=== PATIENT | male | born 1970 | race Caucasian/White ===

== ENCOUNTER 2017-07-08 20:07 | Emergency (ER) | payer BC ==
[~2017-07-08] VITALS: Ht 165.1 cm; Wt 99.5 kg
[~2017-07-08 20:07] MED LIST: BENA20TA65 PO; CIPR500T4 PO; METR500T PO
[2017-07-08 20:11] VITALS: Ht 165.1 cm; Wt 99.5 kg
[2017-07-08] MEDS ORDERED: ONDANSETRON (ODT) 4 MG TAB ODT STA (23:11)
[2017-07-08] MEDS ORDERED: ACET/BUTAL/CAFF/CODEINE CAP PO ONE (23:30)
--- NOTE | 2017-07-08 23:31 | ERD ---
ER Documentation Chief Complaint Chief Complaint headache, nausea HPI 46-year-old male presents to emergency department for complaints of headache bilateral periorbital pain nausea for 2 weeks. Patient is complaining of headache throbbing pain, 6/10 scale, complaining of nausea with it and light sensitivity. Patient denies any head injury recently. Patient had a history of a head injury 9 years ago. Patient denies any vomiting. Patient denies any fever or chills. Patient was in ROS All systems reviewed and are negative except as per history of present illness. Medications Home Meds Active Scripts Ciprofloxacin Hcl* (Ciprofloxacin Hcl*) 500 Mg Tablet, 500 MG PO BID, #14 TAB Prov:HENRY LONDON MD 09/16/16 Metronidazole* (Flagyl*) 500 Mg Tablet, 500 MG PO Q8 for 7 Days, TAB Prov:HENRY LONDON MD 09/16/16 Benazepril Hcl* (Lotensin*) 20 Mg Tablet, 20 MG PO DAILY, #30 TAB Prov:JANENE COBB MD 09/29/15 Allergies Allergies: Coded Allergies: No Known Allergy (Unverified , 09/29/15) PMhx/Soc History of Surgery: No Anesthesia Reaction: No Hx Neurological Disorder: No Hx Respiratory Disorders: No Hx Cardiac Disorders: Yes (HTN) Hx Psychiatric Problems: No Hx Miscellaneous Medical Probl: No Hx Alcohol Use: Yes Hx Substance Use: No Hx Tobacco Use: No Smoking Status: Never smoker FmHx Family History: No coronary disease, No diabetes, No other Physical Exam Vitals Vital Signs Date Time Temp Pulse Resp B/P Pulse Ox O2 Delivery O2 Flow Rate FiO2 07/08/17 20:11 98.9 79 20 142/95 96 Physical Exam GENERAL: The patient is well developed and appropriate for usual state of health, in no apparent distress. CHEST: Clear to auscultation bilaterally. There are no rales, wheezes or rhonchi. HEART: Regular rate and rhythm. No murmurs, clicks, rubs or gallops. No S3 or S4. ABDOMEN: Soft, nontender and nondistended. Good bowel sounds. No rebound or guarding. No gross peritonitis. No gross organomegaly or masses. No Correa sign or McBurney point tenderness. BACK: No midline or flank tenderness. EXTREMITIES: Equal pulses bilaterally. There is no peripheral clubbing, cyanosis or edema. No focal swelling or erythema. Full range of motion. Grossly neurovascularly intact. NEURO: Alert and oriented. Cranial nerves 2-12 intact. Motor strength in all 4 extremities with 5/5 strength. Sensation grossly intact. Normal speech and gait. SKIN: There is no apparent rash or petechia. The skin is warm and dry. HEMATOLOGIC AND LYMPHATIC: There is no evidence of excessive bruising or lymphedema. No gross cervical, axillary, or inguinal lymphadenopathy. Results 24 hrs Current Medications Medications (Trade) Dose Ordered Sig/Chapin Route PRN Reason Start Time Stop Time Status Last Admin Dose Admin Acetam/Butalbital/ Caffeine/Codeine (Fioricet/ Codeine) 1 cap ONCE ONCE PO 07/08/17 23:30 07/08/17 23:31 DC 07/08/17 23:25 Ondansetron HCl (Zofran Odt) 4 mg ONCE STAT ODT 07/08/17 23:11 07/08/17 23:13 DC 07/08/17 23:24 Patient was given medication for pain here in emergency department, after treatment, patient verbalized feeling much better. Patient's pain is improved. Patient was given Zofran here in the emergency department. After treatment, patient was able to tolerate po fluids here in the emergency department without any vomiting. There is no signs and symptoms of dehydration. PROCEDURE: CT Brain without contrast. CLINICAL INDICATION: Headache. TECHNIQUE: A CT of the brain without contrast was performed utilizing axial sections from the skull base through the vertex. The patient was scanned without intravenous contrast enhancement. Sagittal and coronal reformatted images were obtained using the data from the axial images. Total exam DLP is 810.25 mGy-cm. CTDIvol is 45.00 mGy. One or more of the following dose reduction techniques were used: Automated exposure control, adjustment of the mA and/or kV according to patient size, use of iterative reconstruction technique. COMPARISON: None available FINDINGS: There is normal frazier-white matter differentiation. The ventricles and cisterns are normal. There is no intracranial hemorrhage or space-occupying lesion. There is no skull fracture or lytic lesion. Polyps or cysts are present bilaterally in the maxillary sinuses inferiorly. IMPRESSION: 1. Polyps or cysts bilaterally in the maxillary sinuses inferiorly. 2. Otherwise normal noncontrast CT scan of the brain. 3. No intracranial hemorrhage. RPTAT: QQ .Janene Malcolm MD, MD Date Time Electronically viewed and signed by .Janene Malcolm MD, MD on 07/09/2017 00:18 .R/ CC: PAULINO JC NP Procedures/MDM Medical Decision Making: Patient symptoms are consistent with migraine headache , possible tension headache. There is low suspicion for neurological emergencies at this time since patients neurologic exam is normal. Patient did not have any altered level consciousness, vomiting, changes in balance or memory and did not have any head injury. Patients CT scan of the head does not show any neurological emergencies at this time. Rx: Fioricet with codeine, Zofran Dispostion: Home. Stable Disclaimer: Inadvertent spelling and grammatical errors are likely due to EHR/ dictation software use and do not reflect on the overall quality of patient care. Also, please note that the electronic time recorded on this note does not necessarily reflect the actual time of the patient encounter. Departure Diagnosis: Primary Impression: Headache Headache type: unspecified Headache chronicity pattern: acute headache Intractability: not intractable Qualified Code: R51 - Acute nonintractable headache, unspecified headache type Condition: Stable Patient Instructions: Self-Care for Headaches PAULINO JC NP Jul 08, 2017 23:31
--- NOTE | 2017-07-09 00:18 | RADRPT ---
PROCEDURE: CT Brain without contrast. CLINICAL INDICATION: Headache. TECHNIQUE: A CT of the brain without contrast was performed utilizing axial sections from the skul l base through the vertex. The patient was scanned without intravenous contrast enhancement. Sagitta l and coronal reformatted images were obtained using the data from the axial images. Total exam DLP is 810.25 mGy-cm. CTDIvol is 45.00 mGy. One or more of the following dose reduction techniques we re used: Automated exposure control, adjustment of the mA and/or kV according to patient size, use o f iterative reconstruction technique. COMPARISON: None available FINDINGS: There is normal frazier-white matter differentiation. The ventricles and cisterns are normal. There is no intracranial hemorrhage or space-occupying lesion. There is no skull fracture or lytic lesion. Polyps or cysts are present bilaterally in the maxillary sinuses inferiorly. IMPRESSION: 1. Polyps or cysts bilaterally in the maxillary sinuses inferiorly. 2. Otherwise normal noncontrast CT scan of the brain. 3. No intracranial hemorrhage. RPTAT: QQ .Colin Malcolm MD, MD Date Time Electronically viewed and signed by .Colin Malcolm MD, MD on 07/09/2017 00:18 .R/
[2017-07-09] MEDS ORDERED: ONDA4TAB14 PO (01:11)
[2017-07-09] MEDS ORDERED: ABCC1C PO (01:11)
== END 2017-07-09 01:23 | disposition home or self-care (01) ==
LOC: FTE 20:07
DX: R51 Headache (principal); I10 Essential (primary) hypertension; R11.0 Nausea
CPT/HCPCS: 70450; Z7502; Z7610

== ENCOUNTER 2018-02-19 09:28 | Emergency (ER) | END 2018-02-19 11:57 | disposition home or self-care (01) ==

== ENCOUNTER 2018-10-15 20:09 | Emergency (ER) | payer BC ==
[~2018-10-15] VITALS: Ht 170.2 cm; Wt 106.8 kg
[~2018-10-15 20:09] MED LIST changes: +ABCC1C PO; +BUTA1CAP38 PO; +HYDR25TA6 PO; +ONDA4TAB14 PO
[2018-10-15 20:35] VITALS: Ht 170.2 cm; Wt 106.8 kg
[2018-10-15] MEDS ORDERED: KETOROLAC 30 MG INJ IV STA (22:28)
[2018-10-16] MEDS ORDERED: IBUP-1542 PO (00:34)
[2018-10-16 00:39] VITALS: BP 140/90; PULSE 59; RESP 18
--- NOTE | 2018-10-16 03:37 | ERD ---
ER Documentation Chief Complaint Chief Complaint C/O LT SIDED RIB PAIN X1 HR, DENIES INJURY HPI Patient is a 40-year-old male with a past medical history of hypertension who presents to the ER for concerns of left lower rib pain which started 1 hour prior to arrival. Patient states he was getting into his car when he felt his ribs "crunch in". Patient denies any upper left-sided chest pain, shortness of breath, nausea, vomiting, diaphoresis, left upper extremity pain or LOC. Patient states the pain is present when he pushes on the affected area. At rest pain is minimal. Patient denies any radiation of the pain. Patient denies any hemoptysis. Patient denies any fevers or chills. No recent travel. No leg swelling. No history of recent surgeries, no history of DVT or PE. ROS All systems reviewed and are negative except as per history of present illness. Medications Home Meds Active Scripts Ibuprofen* (Motrin*) 600 Mg Tab, 600 MG PO Q6, #30 TAB Prov:TYREE SILVA PA-C 10/16/18 Buyddpypux-Vrypaxferyaee-Ecfkveen* (Fioricet*) 50-300-40 Mg Capsule, 1 CAP PO Q4H PRN for HEADACHE, #20 CAP Prov:JANENE COBB MD 02/19/18 Hydrochlorothiazide* (Hydrochlorothiazide*) 25 Mg Tab, 25 MG PO DAILY, #30 TAB Prov:JANENE COBB MD 02/19/18 Ondansetron (Ondansetron Odt) 4 Mg Tab.rapdis, 4 MG PO Q8 PRN for NAUSEA AND/OR VOMITING, #30 TAB Prov:PAULINO JC NP 07/09/17 Xoayfxvnkbrhc-Ukjtedtgds-Azyxnkdt-Codeine* (Fioricet w/Codeine*) [id number] Cap, 1 CAP PO Q4H PRN for PAIN LEVEL 1-5, #20 CAP Prov:PAULINO JC NP 07/09/17 Ciprofloxacin Hcl* (Ciprofloxacin Hcl*) 500 Mg Tablet, 500 MG PO BID, #14 TAB Prov:HENRY LONDON MD 09/16/16 Metronidazole* (Flagyl*) 500 Mg Tablet, 500 MG PO Q8 for 7 Days, TAB Prov:HENRY LONDON MD 09/16/16 Benazepril Hcl* (Lotensin*) 20 Mg Tablet, 20 MG PO DAILY, #30 TAB Prov:JANENE COBB MD 09/29/15 Allergies Allergies: Coded Allergies: No Known Allergy (Unverified , 09/29/15) PMhx/Soc History of Surgery: No Anesthesia Reaction: No Hx Neurological Disorder: No Hx Respiratory Disorders: No Hx Cardiac Disorders: Yes (HTN) Hx Psychiatric Problems: No Hx Miscellaneous Medical Probl: No Hx Alcohol Use: Yes Hx Substance Use: No Hx Tobacco Use: No Smoking Status: Never smoker FmHx Family History: No diabetes, No coronary disease Physical Exam Vitals Vital Signs Date Temp Pulse Resp B/P (MAP) Pulse Ox O2 O2 Flow FiO2 Time Delivery Rate 10/16/18 98.4 59 18 140/90 98 Room Air 00:39 (107) 10/15/18 98.6 85 20 141/84 97 20:35 (103) Physical Exam GENERAL: Well-developed, well-nourished male. Appears in no acute distress. Speaking in full sentences HEAD: Normocephalic, atraumatic. EYES: Pupils are equally reactive bilaterally. EOMs grossly intact. No conjunctival erythema. ENT: Moist mucous membranes. No uvula deviation. No kissing tonsils. NECK: Supple. No meningismus. Normal range of motion of the neck. LUNG: Clear to auscultation bilaterally. No rhonchi, wheezing, rales or coarse breath sounds. CHEST WALL: Pinpoint tenderness pain is reproducible. To palpation to the left lower rib cage. HEART: Regular rate and rhythm. No murmurs, rubs or gallops. Equal peripheral pulses in bilateral upper extremities. ABDOMEN: No scars, ecchymosis or rashes noted. No pulsatile masses noted bilaterally. Soft, nontender, and nondistended. Positive bowel sounds in all four quadrants. No rebound tenderness, no guarding. (-) McBurney's point tenderness. No CVA tenderness EXTREMITIES: Equal pulses bilaterally. No peripheral clubbing, cyanosis or edema. No unilateral leg swelling. NEUROLOGIC: Alert and oriented. Moving all four extremities without any difficulty. Normal speech. Steady gait. SKIN: Normal color. Warm and dry. No rashes or lesions. Result Diagram: 10/15/18223210/15/182232 Results 24 hrs Laboratory Tests Test 10/15/18 22:33 White Blood Count 8.0 10^3/ul Red Blood Count 4.53 10^6/ul Hemoglobin 14.6 g/dl Hematocrit 42.1 % Mean Corpuscular Volume 92.9 fl Mean Corpuscular Hemoglobin 32.2 pg Mean Corpuscular Hemoglobin Concent 34.7 g/dl Red Cell Distribution Width 12.0 % Platelet Count 174 10^3/UL Mean Platelet Volume 11.2 fl Immature Granulocytes % 0.500 % Neutrophils % 52.0 % Lymphocytes % 39.3 % Monocytes % 6.1 % Eosinophils % 1.5 % Basophils % 0.6 % Nucleated Red Blood Cells % 0.0 /100WBC Immature Granulocytes # 0.040 10^3/ul Neutrophils # 4.2 10^3/ul Lymphocytes # 3.2 10^3/ul Monocytes # 0.5 10^3/ul Eosinophils # 0.1 10^3/ul Basophils # 0.1 10^3/ul Nucleated Red Blood Cells # 0.0 10^3/ul Sodium Level 144 mmol/L Potassium Level 3.9 mmol/L Chloride Level 102 mmol/L Carbon Dioxide Level 28 mmol/L Anion Gap 14 Blood Urea Nitrogen 18 mg/dl Creatinine 0.96 mg/dl Est Glomerular Filtrat Rate mL/min > 60 mL/min Glucose Level 103 mg/dl Calcium Level 9.9 mg/dl Troponin I < 0.012 ng/ml Current Medications Medications Dose Sig/Chapin Start Time Status Last (Trade) Ordered Route PRN Stop Time Admin Dose Reason Admin Ketorolac 30 mg ONCE STAT 10/15/18 DC 10/15/18 Tromethamine IV 22:28 22:57 (Toradol) 10/15/18 22:31 Procedures/MDM ED COURSE: The patient was stable throughout ED course. I kept the patient and/or family informed of laboratory and diagnostic imaging results throughout the ED course. EKG: Read by Dr. Sotomayor, attending physician. EKG shows normal sinus rhythm at a rate of 70 bpm No arrhythmias, acute ST elevations or T wave changes were noted. DIAGNOSTIC IMAGING: Read by radiologist. DIAGNOSTIC IMAGING REPORT Patient: WANDY CHEN : 1970 Age: 48 Sex: M MR #: [id number] DOS: 10/16/18 0002 Ordering MD: TYREE SILVA PA-C Location: [facility] Room/Bed: PROCEDURE: XR Chest. CLINICAL INDICATION: Chest pain TECHNIQUE: Single frontal view of the chest was obtained COMPARISON: CHEST 10/15/2018; [facility] CHEST 03/16/2014 FINDINGS: Hypoinflation of the lungs and bibasilar atelectasis. Minimal elevation of the right hemidiaphragm with right lower lung volume loss. Hypoinflation lungs and portable AP technique and lordotic position of the patient accentuates the cardiomediastinal silhouette. The heart does not appear to be grossly enlarged. The patient is noted to the right. There is no pleural effusion or pneumothorax. IMPRESSION: Hypoinflation of the lungs and bibasilar atelectasis. Please see above. RPTAT: HJES .Everton Kirk MD, Date Time Electronically viewed and signed by .Evertno Kirk MD, MD on 10/16/2018 00:41 .S/ CC: TYREE SILVA PA-C [id number] Patient: WANDY CHEN : 1970 Age: 48 Sex: M MR #: [id number] DOS: 10/15/18 2228 Ordering MD: TYREE SILVA PA-C Location: [facility] Room/Bed: PROCEDURE: Left rib radiographs CLINICAL INDICATION: Left rib pain TECHNIQUE: Images of the left ribs were obtained. The images were reviewed on a PACS workstation. 3 images COMPARISON: None. FINDINGS: Rib detail images show no visible left rib fracture. IMPRESSION: 1. No visible left rib fracture. RPTAT:AAJJ Physician Oly Date Time Electronically viewed and signed by Physician Oly on 10/15/2018 23:50 GW/ CC: TYREE SILVA PA-C [id number] MEDICATIONS GIVEN: Toradol IV Patient tolerated medication well with no adverse reactions. Patient reported improvement in pain. MEDICAL DECISION MAKING: This is a 40-year-old male with a past medical history of hypertension presents the ER for concerns of left-sided rib cage pain which started 1 hour prior to arrival. Patient states pain started after he was getting into his car and felt a "crunch".. Patient denied any leg swelling, recent surgeries, travel. Vital signs were reviewed. Patient was afebrile. Patient was not hypoxic. Cardiac exam was normal. Lung exam was normal. Patient did have reproducible pain on exam. EKG showed normal sinus rhythm. No ST elevations. Reviewed by ED attending. Left-sided rib series is unremarkable. Left-sided chest x-ray was unremarkable. See formal reports above. CBC showed no elevated WBC count or evidence of severe anemia. BMP showed no severe electrolyte abnormalities, acidosis, alkalosis or renal injury. Troponin was negative. PERC score is 0. Heart score is low. Low suspicion for acute cardiac event in the next 6 weeks. Patient did report improvement in symptoms with Toradol. Discussed case with my supervising physician, Dr. Pruitt, who also examined and spoke with the patient. Myself and Dr. Pruitt agreed that patient symptoms are most likely related to rib contusion. Patient was given strict precautions and advised to return to the ER for any new or worsening symptoms including but not limited to worsening pain, shortness of breath, nausea, vomiting, diaphoresis, left upper extremity pain, neck pain or LOC. Low suspicion for PE, acute coronary syndrome, arrhythmia, pericarditis, rib fracture, aortic dissection, pneumothorax, pneumonia or pleural effusion. Patient was nontoxic, [id number] prior to discharge. PRESCRIPTIONS: Ibuprofen DISCHARGE: At this time, patient is stable for discharge and outpatient management. I have instructed the patient to follow-up with his/her primary care physician in 1-2 days. If symptoms persist, patient may need to see a specialist for further examinations and testing. I have instructed the patient to promptly return to the ER at any time for any new or worsening symptoms including increased increased pain, fever, nausea, vomiting, numbness, weakness, diaphoresis or LOC. The patient and/or family expressed understanding of and agreement with this plan. All questions were answered. Home care instructions were provided. Disclaimer: Inadvertent spelling and grammatical errors are likely due to EHR/dictation software use and do not reflect on the overall quality of patient care. Also, please note that the electronic time recorded on this note does not necessarily reflect the actual time of the patient encounter. Departure Diagnosis: Primary Impression: Rib contusion Additional Impression: Rib pain on left side Condition: Fair Patient Instructions: Rib Contusion Additional Instructions: Monitor symptoms closely. If you have any new or worsening chest pain, shortness of breath, diaphoresis, nausea, vomiting or loss of consciousness return immediately to the ER. Call your primary care doctor TOMORROW for an appointment during the next 1-2 days.See the doctor sooner or return here if your condition worsens before your appointment time. TYREE SILVA PA-C Oct 16, 2018 03:37
== END 2018-10-16 00:44 | disposition home or self-care (01) ==
LOC: FTE 20:09
DX: S20.219A Contusion of unspecified front wall of thorax, initial encounter (principal); I10 Essential (primary) hypertension; X58.XXXA Exposure to other specified factors, initial encounter; Y92.9 Unspecified place or not applicable
CPT/HCPCS: 36415; 71045; 71100; 80048; 84484; 85025; 93005; 96372; J1885; Z7502